=== PATIENT | male | born 1970 | race Caucasian/White ===

== ENCOUNTER 2017-05-30 10:39 | Emergency (ER) | payer BC ==
[2017-05-30] MEDS ORDERED: Ketorolac 60 MG/2 ML SDV IM ONE (11:00)
--- NOTE | 2017-05-30 11:07 | EDM.PDOC ---
ED HPI GENERAL MEDICAL PROBLEM - General Chief Complaint: Back Pain or Injury Stated Complaint: BACK PAIN Time Seen by Provider: 05/30/17 10:52 - History of Present Illness INITIAL COMMENTS - FREE TEXT/NARRATIVE: HISTORY AND PHYSICAL: History of present illness: The patient is a 47 y/o male with a long-standing history of left lower back pain that has been ongoing for 2 years and has episodic flareups with even small activities. The patient says this recent flareup started about 5 days ago and he was managing at home with [id number] ibuprofen and did see a chiropractor yesterday. He has seen the chiropractor in the past and has had x- rays and was told that he might have a degenerative disc in his lower back. He has never had an MRI or seen a back specialist. The patient says he does lifting and moving for work and he may have aggravated something on Thursday and it has been progressively worse. After his alignment with the chiropractor yesterday he felt really good and then went home and watched for 2 hours and when he tried to get up he felt very stiff and the pain had returned. Whenever he gets a flareup it is always in the same location which is the left lumbar spine area just above the pelvis. The pain does not radiate to his legs and he has no bowel or bladder disturbances and no neurosensory changes or weakness in his legs. He has no flank pain. He has no systemic complaints. Patient did not take anything today for pain. Patient feels somewhat frustrated and would like care and referrals for further management of this chronic problem. He has not had any hematuria Review of systems: As per history of present illness and below otherwise all systems reviewed and negative. Past medical history: As per history of present illness and as reviewed below otherwise noncontributory. Surgical history: As per history of present illness and as reviewed below otherwise noncontributory. Social history: No reported history of drug or alcohol abuse. Family history: As per history of present illness and as reviewed below otherwise noncontributory. Physical exam: Gen.: Well-developed well-nourished man who is nontoxic and vital signs have been reviewed by me. The patient ambulated into the ED without assistance or distress. HEENT: Atraumatic, normocephalic, negative for conjunctival pallor or scleral icterus, mucous membranes moist, throat clear, neck supple, nontender, trachea midline. Lungs: Clear to auscultation, breath sounds equal bilaterally, chest nontender. Heart: S1S2, regular rate and rhythm no overt murmurs Abdomen: Soft, nondistended, nontender. NABS Negative for costovertebral tenderness. Pelvis: Stable nontender. Genitourinary: Deferred. Rectal: Deferred. Extremities: Atraumatic, negative for cords or calf pain. Neurovascular unremarkable. Neuro: Awake, alert, oriented. Cranial nerves II through XII unremarkable. Cerebellum unremarkable. Motor and sensory unremarkable throughout. Exam nonfocal. Tone is intact in the lower extremities and dorsi and plantar flexion is intact as above the great toe 5/5, inversion and eversion of the feet is intact. Gait was intact. Back: There are no midline step-offs tenderness defects of the thoracic or lumbar spine and there is some left paraspinal muscle tenderness in the lower lumbar area and near the SI joint. There is no soft tissue swelling appreciated Diagnostics: Patient states he has had x-rays in the past with his chiropractor and defers them today Therapeutics: Toradol I discussed with the patient at length symptomatic care of stretching ice and heat and will give him prescriptions for pain management. He has never been diagnosed with a disc problem but his chiropractor did mention that he could have a degenerative disc so I will give him Medrol Dosepak to see if that helps and further help the care plan going forward. He does not meet criteria for an emergent MRI and he is aware that he may need when going forward and/or physical therapy and further treatment. We will give him referrals for clinic Impression: Lumbar back pain acute on chronic Definitive disposition and diagnosis as appropriate pending reevaluation and review of above. Lower Back Pain Score (Numeric/FACES): 9 - Related Data Allergies Allergy/AdvReac Type Severity Reaction Status Date / Time No Known Allergies Allergy Verified 05/30/17 10:51 Home Meds: Home Meds . [No Known Home Meds] 05/30/17 [History] Past Medical History Musculoskeletal History: Reports: Back Pain, Chronic Social & Family History - Family History Family Medical History: Noncontributory - Tobacco Use Smoking Status *Q: Current Every Day Smoker Years of Tobacco use: 20 Packs/Tins Daily: 1 - Caffeine Use Caffeine Use: Reports: Coffee - Recreational Drug Use Recreational Drug Use: No ED ROS GENERAL - Review of Systems Review Of Systems: ROS reveals no pertinent complaints other than HPI. ED EXAM, GENERAL - Physical Exam Exam: See Below (See dictation) Course - Vital Signs Last Recorded V/S: Last Vital Signs Temp 36.6 C 05/30/17 10:48 Pulse 71 05/30/17 10:48 Resp 16 05/30/17 10:48 BP 165/97 H 05/30/17 10:48 Pulse Ox 99 05/30/17 10:48 - Orders/Labs/Meds Meds: Medications Discontinued Medications Generic Name Dose Route Start Last Admin Trade Name Freq PRN Reason Stop Dose Admin Ketorolac Tromethamine 60 mg 05/30/17 11:00 Toradol IM 05/30/17 11:01 ONETIME ONE Departure - Departure Time of Disposition: 11:05 Disposition: Home, Self-Care 01 Condition: Good Clinical Impression: Lumbar back pain - Discharge Information Referrals: PCP,None [Primary Care Provider] - Additional Instructions: The following information is given to patients seen in the emergency department who are being discharged to home. This information is to outline your options for follow-up care. We provide all patients seen in our emergency department with a follow-up referral. The need for follow-up, as well as the timing and circumstances, are variable depending upon the specifics of your emergency department visit. If you don't have a primary care physician on staff, we will provide you with a referral. We always advise you to contact your personal physician following an emergency department visit to inform them of the circumstance of the visit and for follow-up with them and/or the need for any referrals to a consulting specialist. The emergency department will also refer you to a specialist when appropriate. This referral assures that you have the opportunity for followup care with a specialist. All of these measure are taken in an effort to provide you with optimal care, which includes your followup. Under all circumstances we always encourage you to contact your private physician who remains a resource for coordinating your care. When calling for followup care, please make the office aware that this follow-up is from your recent emergency room visit. If for any reason you are refused follow-up, please contact the [facility] emergency department at and ask to speak to the emergency department charge nurse. [facility] Primary care- Internal Medicine and Family [place] [phone] Please use ice to area of discomfort after any activities even minor activities. Use ice for 1-2 hours and then switch to heat and start stretching and trying to open up the area as we discussed. Do all activities more slowly to prevent further injury. His take medications as prescribed and please call our clinic on Thursday to schedule a follow-up appointment for reevaluation and further care. You may need further testing going forward. Please return to ER as needed and as discussed
== END 2017-05-30 11:48 | disposition home or self-care (01) ==
LOC: MW.ED 10:39
DX: G89.29 Other chronic pain (principal); M54.5 Low back pain; F17.210 Nicotine dependence, cigarettes, uncomplicated
CPT/HCPCS: 96372; 99283; J1885; 99284

== ENCOUNTER 2022-10-20 08:32 | Day surgery (SDC) | payer BC ==
[~2022-10-20 08:32] MED LIST: Lactated Ringers 1,000 ML IV SCH; ceFAZolin 2 GM in Sodium Chloride 0.9% 50 ML IV ONE
[2022-10-20] MEDS ORDERED: Lidocaine 2% 5 ML SDV ONE (09:09)
[2022-10-20] MEDS ORDERED: Dexamethasone 4 MG/ML 5 ML MDV ONE (09:09)
[2022-10-20] MEDS ORDERED: Propofol 200 MG/20 ML SDV ONE (09:09)
[2022-10-20] MEDS ORDERED: Ondansetron 4 MG/2 ML SDV ONE (09:09)
[2022-10-20] MEDS ORDERED: Rocuronium Bromide 50 MG/5 ML Syringe ONE (09:09)
[2022-10-20] MEDS ORDERED: fentaNYL 100 MCG/2 ML SDV ONE (09:09)
[2022-10-20] MEDS ORDERED: Ropivacaine 0.5% 5 MG/ML 30 ML SDV ONE (09:10)
[2022-10-20] MEDS ORDERED: Bupivacaine 0.5% 30 ML SDV ONE (09:11)
[2022-10-20] MEDS ORDERED: ceFAZolin 1 GM Vial ONE (09:11)
[2022-10-20] MEDS ORDERED: Water For Injection, Sterile 20 ML ONE ×2 (09:12→09:49)
[2022-10-20] MEDS ORDERED: Dexmedetomidine 200 MCG/2 ML SDV ONE (09:12)
[2022-10-20] MEDS ORDERED: ceFAZolin 2 GM Vial ONE (09:49)
[2022-10-20] MEDS ORDERED: ePHEDrine 50 MG/ML SDV ONE (10:13)
[2022-10-20] MEDS ORDERED: Sugammadex Sodium 200 MG/2 ML VIAL ONE (10:54)
[2022-10-20] MEDS ORDERED: Ketorolac 30 MG/ML SDV ONE (11:07)
[2022-10-20] MEDS ORDERED: Acetaminophen/HYDROcodone 325-5 MG Tab PO PRN (11:17)
[2022-10-20] MEDS ORDERED: Morphine 4 MG/ML Syringe IVPUSH PRN (11:17)
[2022-10-20] MEDS ORDERED: Lactated Ringers 1,000 ML IV SCH (11:30)
== END 2022-10-20 12:50 | disposition home or self-care (01) ==
LOC: MW.SDS 08:32
PROVIDERS: ATTEND Surgery
DX: K40.90 Unilateral inguinal hernia, without obstruction or gangrene, not specified as recurrent (principal); K85.90 Acute pancreatitis without necrosis or infection, unspecified; I10 Essential (primary) hypertension; K82.8 Other specified diseases of gallbladder; M79.7 Fibromyalgia; M10.9 Gout, unspecified; K21.9 Gastro-esophageal reflux disease without esophagitis; I42.2 Other hypertrophic cardiomyopathy; Z78.9 Other specified health status; Z79.899 Other long term (current) drug therapy; Z90.49 Acquired absence of other specified parts of digestive tract; Z98.890 Other specified postprocedural states; Z87.891 Personal history of nicotine dependence
CPT/HCPCS: 49505; 64486; A9270; J0131; J0690; J1100; J1885; J2405; J2704; J2795; J3010; J3490; J7120; 00830; C1781